=== PATIENT | female | born 1995 | race Two or more races ===

== ENCOUNTER → 2024-03-28 14:53 | Outpatient (REF) | payer OTHER, SELFPAY | LOC: RAD 14:53 | PROVIDERS: ATTENDING PHYSICIAN Obstetrics & Gynecology; FAMILY PHYSICIAN Family Medicine | DX: O26.859 Spotting complicating pregnancy, unspecified trimester (principal) | CPT/HCPCS: 76801 ==

== ENCOUNTER → 2024-04-25 17:31 | Outpatient (REF) | payer OTHER, SELFPAY | LOC: PNTC 17:31 | PROVIDERS: ATTENDING PHYSICIAN Obstetrics & Gynecology | DX: O09.519 Supervision of elderly primigravida, unspecified trimester (principal); Z36.0 Encounter for antenatal screening for chromosomal anomalies; Z87.59 Personal history of other complications of pregnancy, childbirth and the puerperium; O99.210 Obesity complicating pregnancy, unspecified trimester | CPT/HCPCS: 76801; 76813 ==

== ENCOUNTER → 2024-05-24 08:04 | Outpatient (REF) | payer OTHER, SELFPAY | LOC: PNTC 08:04 | PROVIDERS: ATTENDING PHYSICIAN Obstetrics & Gynecology | DX: O99.210 Obesity complicating pregnancy, unspecified trimester (principal); Z87.59 Personal history of other complications of pregnancy, childbirth and the puerperium; O99.320 Drug use complicating pregnancy, unspecified trimester | CPT/HCPCS: 76805 ==

== ENCOUNTER → 2024-06-20 07:58 | Outpatient (REF) | payer OTHER, SELFPAY | LOC: PNTC 07:58 | PROVIDERS: ATTENDING PHYSICIAN Obstetrics & Gynecology | DX: O09.529 Supervision of elderly multigravida, unspecified trimester (principal); O09.519 Supervision of elderly primigravida, unspecified trimester | CPT/HCPCS: 76811 ==

== ENCOUNTER → 2024-07-18 10:46 | Outpatient (REF) | payer OTHER, SELFPAY | LOC: PNTC 10:46 | PROVIDERS: ATTENDING PHYSICIAN Obstetrics & Gynecology | DX: O09.529 Supervision of elderly multigravida, unspecified trimester (principal); O09.519 Supervision of elderly primigravida, unspecified trimester | CPT/HCPCS: 76816 ==

== ENCOUNTER 2024-07-23 13:52 | Observation (INO) | payer OTHER, SELFPAY ==
[2024-07-23 14:19] VITALS: BP 142/68; BMI 43.4
[2024-07-23 15:01] LABS: Urine Albumin Negative (Neg - Trace); Urine Bilirubin Negative (Negative); Urine Character Clear (Clear); Urine Color Yellow; Urine Glucose Trace (Negative); Urine Ketone Negative (Negative); Urine Leukocyte Negative (Negative); Urine Nitrite Negative (Negative); Urine Occult Blood Negative (Negative); Urine Specific Gravity 1.015 (<1.030); Urine Urobilinogen Negative (Neg - 1+)
[2024-07-23 15:19] LABS: % Basophils 0.2 % (0-2); % Eosinophils 0.6 % (0-6); % Lymphocytes 20.4 % (20.5-51.1); % Monocytes 6.6 % (1.7-9.3); % Neutrophils 70.2 % (42.2-75.2); Absolute Eosinophils 0.1 10^3/uL (0-0.7); Absolute Immature Granulocytes 0.2 10^3/uL (0-0.05); Absolute Lymphocytes 1.8 10^3/uL (1.2-3.4); Absolute Monocytes 0.6 10^3/uL (0.1-0.6); Absolute Neutrophils 6.3 10^3/uL (1.4-6.5); Hematocrit 32.6 % (37.0-47.0); Hemoglobin 11.7 g/dL (12.0-16.0); Mean Corp Hgb Conc. 35.9 g/dL (33.0-37.0); Mean Corpuscular Hgb 30.7 pg (27.0-31.0); Mean Corpuscular Volume 85.6 fL (81.0-99.0); Mean Platelet Volume 9.9 fL (7.4-10.4); Nucleated Red Blood Cells % 0 %; Platelet Count 178 10^3/uL (130-400); Red Blood Cell Count 3.81 10^6/uL (4.20-5.40); Red Cell Dist. Width 12.7 % (11.5-14.5)
[2024-07-23 15:20] LABS: Protein/creatinine Ratio 0.7; Urine Protein 17 mg/dl
[2024-07-23 15:38] LABS: ALT (SGPT) 12 U/L (0-35); AST (SGOT) 19 U/L (14-36); Albumin 3.4 g/dl (3.5-5.0); Alkaline Phosphatase 66 U/L (38-126); Blood Urea Nitrogen 8 mg/dl (7-17); Calcium 9.2 mg/dl (8.4-10.2); Carbon Dioxide 20 mmol/L (22-30); Chloride 107 mmol/L (98-107); Estimated Creatinine Clearance > 125 ml/min; Glucose 111 mg/dl (70-99); Sodium 136 mmol/L (135-145); Total Bilirubin 0.3 mg/dl (0.2-1.3); Total Protein 5.7 g/dl (6.3-8.2); Uric Acid 2.8 mg/dl (2.5-6.2); eGFR > 60.00
== END 2024-07-23 15:34 | disposition home or self-care (01) ==
LOC: LDRP 13:52
PROVIDERS: ADMITTING PHYSICIAN Obstetrics & Gynecology
DX: O12.02 Gestational edema, second trimester (principal); Z3A.24 24 weeks gestation of pregnancy; Z88.1 Allergy status to other antibiotic agents; Z88.0 Allergy status to penicillin; Z88.8 Allergy status to other drugs, medicaments and biological substances; Z91.048 Other nonmedicinal substance allergy status
CPT/HCPCS: 59025; 80053; 81003; 82570; 84156; 84550; 85025; 86850; 86900; 86901; G0378

== ENCOUNTER → 2024-08-15 09:06 | Outpatient (REF) | payer OTHER, SELFPAY | LOC: PNTC 09:06 | PROVIDERS: ATTENDING PHYSICIAN Obstetrics & Gynecology | DX: O09.519 Supervision of elderly primigravida, unspecified trimester (principal) | CPT/HCPCS: 76816 ==

== ENCOUNTER 2024-09-11 05:02 | Observation (INO) | payer OTHER, SELFPAY ==
[2024-09-11 05:29] VITALS: BP 127/52; BMI 39.8
[2024-09-11 06:37] LABS: Urine Albumin Trace (Neg - Trace); Urine Bilirubin Negative (Negative); Urine Character Slightly Cloudy (Clear); Urine Color Yellow; Urine Glucose Negative (Negative); Urine Ketone Negative (Negative); Urine Leukocyte Trace (Negative); Urine Nitrite Negative (Negative); Urine Occult Blood Negative (Negative); Urine Specific Gravity 1.025 (<1.030); Urine Urobilinogen Negative (Neg - 1+)
[2024-09-11 06:50] LABS: Urine Amorphous Seen; Urine Bacteria Many (Negative); Urine Calcium Oxalate Crystals Seen; Urine Mucus Many; Urine Squamous Cell >30 /LPF (Few)
[2024-09-11 06:51] LABS: Urine Red Blood Cell 0-2 /HPF (0-2)
[2024-09-11 09:08] LABS: % Basophils 0.2 % (0-2); % Eosinophils 0.9 % (0-6); % Lymphocytes 19.2 % (20.5-51.1); % Monocytes 8.2 % (1.7-9.3); % Neutrophils 69.5 % (42.2-75.2); Absolute Eosinophils 0.1 10^3/uL (0-0.7); Absolute Immature Granulocytes 0.2 10^3/uL (0-0.05); Absolute Lymphocytes 1.6 10^3/uL (1.2-3.4); Absolute Monocytes 0.7 10^3/uL (0.1-0.6); Absolute Neutrophils 5.6 10^3/uL (1.4-6.5); Hematocrit 36.4 % (37.0-47.0); Hemoglobin 12.5 g/dL (12.0-16.0); Mean Corp Hgb Conc. 34.3 g/dL (33.0-37.0); Mean Corpuscular Volume 87.5 fL (81.0-99.0); Mean Platelet Volume 10.2 fL (7.4-10.4); Nucleated Red Blood Cells % 0 %; Platelet Count 150 10^3/uL (130-400); Red Blood Cell Count 4.16 10^6/uL (4.20-5.40); Red Cell Dist. Width 13.7 % (11.5-14.5); White Blood Cell Count 8.1 10^3/uL (4.8-10.8)
[2024-09-11 09:25] LABS: ALT (SGPT) 17 U/L (0-35); AST (SGOT) 23 U/L (14-36); Albumin 3.6 g/dl (3.5-5.0); Alkaline Phosphatase 92 U/L (38-126); Blood Urea Nitrogen 6 mg/dl (7-17); Calcium 8.7 mg/dl (8.4-10.2); Carbon Dioxide 21 mmol/L (22-30); Chloride 105 mmol/L (98-107); Estimated Creatinine Clearance > 125 ml/min; Glucose 99 mg/dl (70-99); Potassium 4.2 mmol/L (3.5-5.1); Sodium 139 mmol/L (135-145); Total Bilirubin 0.3 mg/dl (0.2-1.3); Total Protein 6.2 g/dl (6.3-8.2); eGFR > 60.00
[2024-09-11] MEDS: TUMS CHEWABLE TABLET 400 MG PO (12:59)
[2024-09-11 15:34] LABS: Amylase 47 U/L (30-110); Lipase 140 U/L (23-300)
[2024-09-11 15:53] LABS: D-Dimer 0.28 ug/mlFEU (0.00-0.50)
[2024-09-11] MEDS: TYLENOL 1000 MG PO (19:56)
--- NOTE | 2024-09-11 22:00 | CON.ONC ---
Impression
Impression
IUP at 31 weeks
L flank pain
Splenomegaly
Plan
Plan
CBC unremarkable.
Pt denies sick contacts, fever, chills.
Differential includes splenic infarct, splenic vein thrombosis, PE, musculoskeletal
Recommend:
CT chest PE protocol
Abdominal Doppler U/S
D-dimer
Case d/w Dr. Ferguson
Thank you for consult, will follow along with you.
Patient History
History of Present Illness
29-year-old woman, currently 31 weeks , admitted with abdominal pain. She has a personal history of pancreatitis and family history of DVT PE and personal history of 8 first-trimester miscarriages and 3 live births. Pain is localized to
left flank. Urinalysis unremarkable. Initial workup consisted of renal ultrasound showing spleen mildly enlarged at 14.4 cm. Kidneys and bladder appeared unremarkable. Patient appears uncomfortable and admits to shortness of breath. Denies
asymmetric lower extremity swelling. Denies other medical issues. She has been on baby aspirin as outpt.
Past-Medical/Surgical History
Unremarkable.
Patient Medication
�Medication �Instructions �Recorded �Confirmed �Last Taken �Type
Baby Aspirin 1 tab PO DAILY Blood Clot 07/23/24 09/11/24 09/10/24 08:00 History
Prevention/Tx
Vitamin 1 tab PO DAILY Supplement 07/23/24 09/11/24 09/10/24 08:00 History
Active Medications
Generic Name Dose Route Start Last Admin
Trade Name Freq PRN Reason Stop Dose Admin
Calcium Carbonate 400 mg 09/11/24 12:46 09/11/24 12:59
Calcium Antacid 200 Mg (Calcium Carbonate 500 Mg) Chew Tablet PO 10/09/24 12:45 400 mg
Q4HPRN PRN Administration
dyspepsia
Ondansetron HCl 4 mg 09/11/24 20:49
Ondansetron 4 Mg/2 Ml Vial IV 10/09/24 20:48
Q6HPRN PRN
nausea
Sodium Chloride 0 flush 09/11/24 21:00
Sodium Chloride 0.9% (Flush) Syringe IV 10/09/24 20:59
PER PROTOCOL FREEDOM
Review of Systems
-
History Source: Patient and Physician
Physical Exam
-
General: Well Developed, Well Nourished and Appears in Distress (mild distresws)
HEENT: Moist Mucous Membranes; Negative Jaundice
Cardiology: Normal Sinus Rhythm, S1 and S2
Pulmonary: Clear
GI: Soft and Other (tender LUQ, L flank)
Genito-Urinary: Other (Tender over lower lateral left ribs.)
Musculoskeletal: No Clubbing, No Cyanosis, Edema, Right Lower Extrem and Edema, Left Lower Extrem
Extremities: Pulses Present; Negative Phlebitic Signs
Neurology: Non Focal and No Lateralizing Symptoms
Skin: Warm and Dry
Hematologic / Lymphatic: No Lymphadenopathy
Psych: Calm and Intact Judgement/Insight
Labs
Lab Results
WBC 8.1 10^3/uL (4.8-10.8) 09/11/24 08:44
RBC 4.16 10^6/uL (4.20-5.40) L 09/11/24 08:44
Hgb 12.5 g/dL (12.0-16.0) 09/11/24 08:44
Hct 36.4 % (37.0-47.0) L 09/11/24 08:44
MCV 87.5 fL (81.0-99.0) 09/11/24 08:44
MCH 30.0 pg (27.0-31.0) 09/11/24 08:44
MCHC 34.3 g/dL (33.0-37.0) 09/11/24 08:44
RDW 13.7 % (11.5-14.5) 09/11/24 08:44
Plt Count 150 10^3/uL (130-400) 09/11/24 08:44
MPV 10.2 fL (7.4-10.4) 09/11/24 08:44
Abs Immat Gran (auto) 0.2 10^3/uL (0-0.05) H 09/11/24 08:44
Absolute Neuts (auto) 5.6 10^3/uL (1.4-6.5) 09/11/24 08:44
Absolute Lymphs (auto) 1.6 10^3/uL (1.2-3.4) 09/11/24 08:44
Absolute Monos (auto) 0.7 10^3/uL (0.1-0.6) H 09/11/24 08:44
Absolute Eos (auto) 0.1 10^3/uL (0-0.7) 09/11/24 08:44
Absolute Basos (auto) 0.0 10^3/uL (0-0.2) 09/11/24 08:44
Immature Gran % 2.0 % (0-0.5) H 09/11/24 08:44
Neutrophils % 69.5 % (42.2-75.2) 09/11/24 08:44
Lymphocytes % 19.2 % (20.5-51.1) L 09/11/24 08:44
Monocytes % 8.2 % (1.7-9.3) 09/11/24 08:44
Eosinophils % 0.9 % (0-6) 09/11/24 08:44
Basophils % 0.2 % (0-2) 09/11/24 08:44
Creatinine 0.5 mg/dL (0.6-1.0) L 09/11/24 08:44
Vital Signs
Vital Signs
Temp Pulse Resp BP
97.6 F 98 16 127/52
09/11/24 05:29 09/11/24 05:29 09/11/24 05:29 09/11/24 05:29
[2024-09-12 07:11] LABS: ALT (SGPT) 16 U/L (0-35); AST (SGOT) 21 U/L (14-36); Albumin 3.3 g/dl (3.5-5.0); Alkaline Phosphatase 85 U/L (38-126); Blood Urea Nitrogen 9 mg/dl (7-17); Calcium 9.2 mg/dl (8.4-10.2); Carbon Dioxide 19 mmol/L (22-30); Chloride 104 mmol/L (98-107); Estimated Creatinine Clearance > 125 ml/min; Glucose 126 mg/dl (70-99); Potassium 4.1 mmol/L (3.5-5.1); Sodium 136 mmol/L (135-145); Total Bilirubin 0.3 mg/dl (0.2-1.3); Total Protein 5.9 g/dl (6.3-8.2); eGFR > 60.00
[2024-09-12 07:48] LABS: % Basophils 0.5 % (0-2); % Eosinophils 0.9 % (0-6); % Immature Granulocytes 1.8 % (0-0.5); % Lymphocytes 21.6 % (20.5-51.1); % Monocytes 9.6 % (1.7-9.3); % Neutrophils 65.6 % (42.2-75.2); Absolute Eosinophils 0.1 10^3/uL (0-0.7); Absolute Immature Granulocytes 0.1 10^3/uL (0-0.05); Absolute Lymphocytes 1.7 10^3/uL (1.2-3.4); Absolute Monocytes 0.7 10^3/uL (0.1-0.6); Hematocrit 35.9 % (37.0-47.0); Hemoglobin 12.5 g/dL (12.0-16.0); Mean Corp Hgb Conc. 34.8 g/dL (33.0-37.0); Mean Corpuscular Hgb 30.3 pg (27.0-31.0); Mean Corpuscular Volume 86.9 fL (81.0-99.0); Mean Platelet Volume 10.4 fL (7.4-10.4); Nucleated Red Blood Cells % 0 %; Platelet Count 149 10^3/uL (130-400); Red Blood Cell Count 4.13 10^6/uL (4.20-5.40); Red Cell Dist. Width 13.8 % (11.5-14.5); White Blood Cell Count 7.7 10^3/uL (4.8-10.8)
--- NOTE | 2024-09-12 09:29 | W.PN.ONC ---
Today's Communication / Plan
-
Mild (even moderate) splenomegaly can be physiologic in ; no abnormalities of concern on CT
CBC unremarkable
Pain is with movement/positioning, likely musculoskeletal
Would try short course of steroids, ie, Medrol dose-olinda
Okay for d/c from heme standpoint
d/w Dr. Beavers
Impression
Impression
IUP at 31 weeks
L flank pain - without GI symptoms, worse with movement
Splenomegaly - mild, without infarct, thrombus or other abnormality by CT
Plan
Plan
Mild (even moderate) splenomegaly can be physiologic in ; no abnormalities of concern on CT
CBC unremarkable
Pain is with movement/positioning, likely musculoskeletal
Would try short course of steroids, ie, Medrol dose-olinda
Okay for d/c from heme standpoint
d/w Dr. Beavers
Subjective/Objective
Subjective/Objective
c/o ongoing left flank pain, exacerbated w/ sitting up, positioning in bed, etc. Pain resolves when still. No GI sxs currently, no constipation, nausea. Ate breakfast.
Vital Signs:
Vital Signs
Temp Pulse Resp BP
97.6 F 98 16 127/52
09/11/24 05:29 09/11/24 05:29 09/11/24 05:29 09/11/24 05:29
Lab Results:
Laboratory Data
WBC 7.7 10^3/uL (4.8-10.8) 09/12/24 06:15
Hgb 12.5 g/dL (12.0-16.0) 09/12/24 06:15
Plt Count 149 10^3/uL (130-400) 09/12/24 06:15
eGFR > 60.00 09/12/24 06:15
== END 2024-09-12 10:30 | disposition home or self-care (01) ==
LOC: LDRP 05:02
PROVIDERS: Obstetrics & Gynecology; ADMITTING PHYSICIAN Obstetrics & Gynecology
DX: R10.12 Left upper quadrant pain (principal); M54.6 Pain in thoracic spine; Z3A.31 31 weeks gestation of pregnancy; R11.2 Nausea with vomiting, unspecified; R07.81 Pleurodynia; O99.213 Obesity complicating pregnancy, third trimester; O99.283 Endocrine, nutritional and metabolic diseases complicating pregnancy, third trimester; E28.2 Polycystic ovarian syndrome; O09.293 Supervision of pregnancy with other poor reproductive or obstetric history, third trimester; O26.23 Pregnancy care for patient with recurrent pregnancy loss, third trimester; R16.1 Splenomegaly, not elsewhere classified; O99.891 Other specified diseases and conditions complicating pregnancy; R10.32 Left lower quadrant pain; G90.A Postural orthostatic tachycardia syndrome [POTS]; G43.909 Migraine, unspecified, not intractable, without status migrainosus; R06.02 Shortness of breath; O26.893 Other specified pregnancy related conditions, third trimester; F43.10 Post-traumatic stress disorder, unspecified; K76.0 Fatty (change of) liver, not elsewhere classified; J45.909 Unspecified asthma, uncomplicated; K58.9 Irritable bowel syndrome, unspecified; N80.9 Endometriosis, unspecified; O99.343 Other mental disorders complicating pregnancy, third trimester; F41.9 Anxiety disorder, unspecified; Z62.810 Personal history of physical and sexual abuse in childhood; Z88.1 Allergy status to other antibiotic agents; Z91.030 Bee allergy status; Z88.0 Allergy status to penicillin; Z88.8 Allergy status to other drugs, medicaments and biological substances; Z91.048 Other nonmedicinal substance allergy status; Z87.442 Personal history of urinary calculi; Z79.82 Long term (current) use of aspirin; Z90.49 Acquired absence of other specified parts of digestive tract; Z82.49 Family history of ischemic heart disease and other diseases of the circulatory system; Z80.3 Family history of malignant neoplasm of breast; Z83.49 Family history of other endocrine, nutritional and metabolic diseases; Z87.19 Personal history of other diseases of the digestive system
CPT/HCPCS: 71275; 76770; 80053; 81003; 81015; 82150; 83690; 85025; 85379; 87086; 93975; G0378; Q9967

== ENCOUNTER 2024-12-18 05:43 | Emergency (ER) | payer MEDICAID, SELFPAY ==
[2024-12-18 06:23] VITALS: BP 118/91
--- NOTE | 2024-12-18 06:26 | ED.GENMED ---
History of Present Illness
General
Chief Complaint: Dizziness
Time Seen by Provider: 12/18/24 06:09
History of Present Illness
History of Present Illness:
Patient is a 29-year-old woman presenting to the emergency department with possible carbon monoxide exposure. Patient states that she woke up felt funny in her the carbon monoxide detectors going off in the basement.. Fire department came they
noticed that her furnace was leaking. Patient was lightheaded dizzy slightly nauseous. She did have some shortness of breath. She felt as if she inhaled smoke. There was no smoke. She denies any chest pain abdominal pain confusion headache.
She does smoke. She denies any rashes. Per medics on their arrival the patient placed on nasal cannula empirically.
Phy Exam
Physical Exam
Physical Exam:
GENERAL: in no acute distress
HEENT: normocephalic, extraocular movements intact, moist oral mucosa
NECK: normal inspection
RESPIRATORY: no respiratory distress, clear to auscultation bilaterally
CARDIOVASCULAR: regular rate and rhythm
ABDOMEN/: soft, non-distended, non-tender to palpation, no rebound or guarding
EXTREMITIES: non-tender, no edema/swelling
NEUROLOGIC: awake and alert, moves all extremities
SKIN: warm
Course
Orders/Labs/Results
Orders:
Orders
12/18/24 06:19
Electrocardiogram (*1) Urgent
Reason for Study: Shortness of Breath
EKG- Treatment ONCE
12/18/24 06:26
CR Chest - 2 Views Urgent
Comment:
Reason For Exam: sob
12/18/24 06:49
Basic Metabolic Panel Urgent
Carboxyhemoglobin Urgent
Complete Blood Count/With Diff Urgent
12/18/24 07:43
Acetaminophen [Tylenol] 1,000 mg PO NOW STA
Abnormal Lab Results
12/18/24
06:49
Abs Immat Gran (auto) 0.1 H 10^3/uL
(0-0.05)
Immature Gran % 1.7 H %
(0-0.5)
Monocytes % 10.0 H %
(1.7-9.3)
Glucose 101 H mg/dl
(70-99)
12/18/24 06:49
12/18/24 06:49
Vital Signs
Initial and Last Documented VS:
Initial Vital Signs
Temp Pulse Resp BP Pulse Ox
98.7 F 92 16 118/91 100
12/18/24 06:23 12/18/24 06:23 12/18/24 06:23 12/18/24 06:23 12/18/24 06:23
Last Documented Vital Signs
Temp Pulse Resp BP Pulse Ox
98.7 F 92 16 118/91 100
12/18/24 06:23 12/18/24 06:23 12/18/24 06:23 12/18/24 06:23 12/18/24 06:23
MDM/Problems Addressed
Differential Diagnosis Includes:
Patient is a 29-year-old woman presenting to the emergency department with concern for carbon monoxide exposure. On arrival here patient's vital signs were unremarkable. Pulse cooximeter was 3%. She is a smoker. Exam is otherwise reassuring.
Given the shortness of breath with the carbon monoxide exposure will obtain basic blood work including EKG and chest x-ray. Will check carboxyhemoglobin level. At this time patient does not meet any emergent reasons for transfer for hyperbaric
therapy given that she does not have any altered mental status, confusion did not pass out.
*Critical Care Note
Total Time (30-74mins, 75-104mins- exclusive of procedures): Not Applicable
Update Note
Update Note:
On reassessment patient continues to have improvement in his symptoms. She does state that most of the lightheadedness dizziness is gone.
On reevaluation patient is resting comfortably. She states that she feels tired which she attributes to not sleeping at all last night. Patient's and other children are at bedside. The firefighters and gas team came out. They are safe to
go home. They do have carbon monoxide detectors at home. Strict return precautions given to patient
ED Attending Note
-
Portions of this chart may have been created with voice recognition software.� Occasional wrong word or��sound alike� substitutions may have occurred due to the inherent limitations of voice recognition software.
Discharge Plan
Departure
Patient Disposition: Home (Routine Discharge)
Date of Disposition: 12/18/24
Time of Disposition: 08:16
Patient with high blood pressure during this ER visit?: No
Discharge Problem:
Carbon monoxide exposure
Instructions: Carbon Monoxide Poisoning (DC)
Prescriptions:
No Action
Baby Aspirin
1 tab PO DAILY
Vitamin
1 tab PO DAILY
methylprednisolone [Medrol (Joe)] 4 mg tablets,dose pack
See Rx Instructions .ROUTE .COMPLEX Qty: 21 0RF
Rx Instructions:
for 6 days
Referrals:
Elvie Corrales, [Family Provider] -
Activity Restrictions/Additional Instructions:
You were seen in the Emergency Department today for carbon monoxide exposure. While you were here we performed blood work, which was reassuring. I did provide you with a pamphlet about signs and symptoms for carbon monoxide poisoning.
We would like for you to follow up with your primary care physician for further evaluation. If you experience fever, worsening of your symptoms, or develop any other new or concerning symptoms, please return to the Emergency Department immediately.
Please see the attached sheet for additional information.
Interventions
Interventions:
*Risk Screen - Suicide Last Done: 12/18/24 06:23
*General Assessment Last Done: 12/18/24 06:23
*Neglect/Abuse Screening Last Done: 12/18/24 06:23
*ED COVID-19 Vaccine History Last Done: 12/18/24 06:23
ED- Neurological Assessment Last Done: 12/18/24 07:05
ED- Cardiac Assessment Last Done: 12/18/24 07:05
Discharge Date and Time
Print Language: HUNGARIAN
[2024-12-18 06:56] LABS: Carboxyhemoglobin 3.6 %
[2024-12-18 07:00] LABS: % Basophils 0.6 % (0-2); % Eosinophils 3.3 % (0-6); % Immature Granulocytes 1.7 % (0-0.5); % Lymphocytes 31.4 % (20.5-51.1); Absolute Eosinophils 0.2 10^3/uL (0-0.7); Absolute Immature Granulocytes 0.1 10^3/uL (0-0.05); Absolute Monocytes 0.6 10^3/uL (0.1-0.6); Absolute Neutrophils 3.4 10^3/uL (1.4-6.5); Hematocrit 42.4 % (37.0-47.0); Hemoglobin 14.2 g/dL (12.0-16.0); Mean Corp Hgb Conc. 33.5 g/dL (33.0-37.0); Mean Corpuscular Hgb 28.5 pg (27.0-31.0); Mean Corpuscular Volume 85.1 fL (81.0-99.0); Mean Platelet Volume 10.3 fL (7.4-10.4); Nucleated Red Blood Cells % 0 %; Platelet Count 210 10^3/uL (130-400); Red Blood Cell Count 4.98 10^6/uL (4.20-5.40); Red Cell Dist. Width 13.2 % (11.5-14.5); White Blood Cell Count 6.3 10^3/uL (4.8-10.8)
[2024-12-18 07:09] LABS: Blood Urea Nitrogen 16 mg/dl (7-17); Calcium 9.3 mg/dl (8.4-10.2); Carbon Dioxide 25 mmol/L (22-30); Chloride 105 mmol/L (98-107); Glucose 101 mg/dl (70-99); Potassium 4.5 mmol/L (3.5-5.1); Sodium 140 mmol/L (135-145); eGFR > 60.00
[2024-12-18] MEDS: TYLENOL 1000 MG PO (07:50)
[2024-12-18 10:22] VITALS: BP 142/84
--- NOTE | 2024-12-18 10:35 | CM ---
ED CM consult for community resources
Bedside meeting with pt and family
CO2 issues in home along with furnace issues
No running hot water for the next week or so
4 minor children in home, youngest 2 months
Community resources provided along with list of local motels
They will local into hotel coverage from renters insurance or landlord
Local aunt has offered alf as well
No other CM needs noted
== END 2024-12-18 10:30 | disposition home or self-care (01) ==
LOC: EMR 05:43
PROVIDERS: EMERGENCY PHYSICIAN Student in an Organized Health Care Education/Training Program; FAMILY PHYSICIAN Family Medicine
DX: T58.91XA Toxic effect of carbon monoxide from unspecified source, accidental (unintentional), initial encounter (principal); Y92.9 Unspecified place or not applicable
CPT/HCPCS: 99283; 71046; 80048; 82375; 85025; 93005